=== PATIENT | female | born 1965 | race Caucasian/White ===

== ENCOUNTER 2020-07-18 17:59 | Emergency (ER) | payer OTHER, SELFPAY ==
[2020-07-18 18:21] VITALS: BP 148/83; PULSE 87; RESP 20; TEMP 37.7; O2SAT 100
--- NOTE | 2020-07-18 18:39 | ED.SKABFB ---
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 Patient states she has couple day history of left crabtree eruption that is pink, slightly raised. She is concerned she might have shingles, and had shaved her legs about half a week ago. No streaking, discharge, abscess/induration-but she had a fever to 101 yesterday. Symptoms are mild worse with palpation. Vital signs are unremarkable here with T 99.8, BP 148/83, and patient states she has had mildly elevated blood pressures in the past. Advised will be given antibiotic clindamycin, which should be stopped if diarrhea occurs. Related Data Allergies Allergy/AdvReac Type Severity Reaction Status Date / Time No Known Allergies Allergy Unknown Verified 06/06/03 13:20 none Allergy Unknown Uncoded 11/29/02 13:06 Review of Systems Review of Systems: Narrative: General/Constitutional: No weight loss, REPORTS fever Eyes: N0: Redness,discharge Ears/Nose/Throat: No: Epistaxis,ear discharge Respiratory: Denies: Hemoptysis Gastrointestinal: No Vomiting, Bleeding-rectal Skin: No Lumps, REPORTS eruption Neurologic: No Focal Weakness,Sz Hematologic: Denies: Petechiae/Purpura Psychiatric: No: Suicida ideationl All Other Systems: Reviewed and Negative [facility] Social History Social History Gender identity (if verbalized by the patient): Female Comments At time of signature, agree with nursing past medical, surgical, social and family history. There is no relevant family history pertinent to the presenting complaint Exam Narrative: Exam Narrative: General Appearance: Overweight Normocephalic, Conjunctiva clear Ear: External ear normal Nose: Normal nose, Nare clear Mouth/Throat: Normal appearing Neck Exam: Supple Respiratory: Airway patent, No respiratory distress Musculoskeletal: Moves all extremities, Non tender Skin: Warm, Dry small, isolated macular papular skin eruption of left crabtree, with areas of sawyer confluence/ cellulitis Neurological: A&O x3, Normal affect Course Vital Signs Vital signs: Vital Signs Temperature 99.8 F H 07/18/20 18:21 Pulse Rate 87 07/18/20 18:21 Respiratory Rate 20 07/18/20 18:21 Blood Pressure 148/83 H 02/10/21 18:21 Pulse Oximetry 100 07/18/20 18:21 Temperature 99.8 F H 07/18/20 18:21 Pulse Rate 87 07/18/20 18:21 Respiratory Rate 20 07/18/20 18:21 Blood Pressure 148/83 H 07/18/20 18:21 Pulse Oximetry 100 07/18/20 18:21 Discharge Plan Discharge Clinical Impression: Folliculitis, History of hypertension Patient Disposition: Home, Self-Care Condition: Stable Instructions: Antibiotic Form, Cellulitis (ED) Additional Instructions: Keep photo log of area, see PMD in follow-up Do daily blood pressure checks Prescriptions: New clindamycin HCl 300 mg capsule 300 mg PO TID Qty: 21 RF: 0 fluconazole 150 mg tablet 150 mg PO WEEKLY Qty: 2 RF: 1 mupirocin 2 % ointment 1 applic TOPICAL TID Qty: 30 RF: 0 hydrochlorothiazide 12.5 mg tablet 12.5 mg PO DAILY Qty: 60 RF: 2 Follow-up/Referrals: PHYSICIAN,ORGANIC SEARCH LEAD [Primary Care Provider] -
== END 2020-07-18 18:43 | disposition home or self-care (01) ==
PROVIDERS: Emergency Provider Emergency Medicine
DX: L73.9 Follicular disorder, unspecified (principal)
CPT/HCPCS: 99213; G0463

== ENCOUNTER 2021-10-17 01:16 | Day surgery (SDC) | payer OTHER, SELFPAY ==
--- NOTE | 2021-10-15 15:57 | SUR.PREOP ---
Report to the Outpatient Waiting Room, entrance under the green pavilion located off [facility], at time 6am on date 10/17 OR Time: 730 - You and your visitor will be asked a series of questions to screen for COVID 19 for your protection. - Only one visitor is allowed at this time. - The patient visitor is requested to leave or wait in car when not with patient. - A mask is required within the hospital. Patients may have clear liquids (water, carbonated beverages, clear teas, apple juice) until 3 hours prior to surgery with a maximum of 20 ounces. - No food from midnight until time of surgery. Take the following medications with a SIP of water the morning of surgery: N/A Medications to discontinue per physician N/A Please no make-up, nail citizen of [place], hairspray, perfume, deodorant, or body powder the day of surgery. No jewelry (including any body piercings) or valuables the day of surgery, leave them at home. Please take a shower or bath the night before, or the morning of, surgery with an antibacterial soap. Wear comfortable, loose fitting clothing. - Jewelry must be removed prior to entering the operating room. Rings and piercings that are not removed may be cut off. - The hospital will not accept responsibility for valuables. - Please leave all valuables, including medications, at home the day of surgery. If you are going home after surgery, a licensed tank wagon driver must drive you home. - NO public transportation without another adult. - We recommend that an adult stay with you for 24 hours following discharge. - We also recommend that you do not drive, make important decision, drink alcoholic beverages, or take any drugs that were not prescribed by your health care provider for at least 24 hours after your discharge time. Follow any additional instructions given to you from your surgeon. If you or anyone in your household have experienced Covid symptoms in the past week, please notify your surgeon or the nurse liaison at the phone number below for possible testing. Telephone instructions given to patient and asked if any additional questions and then verbalized understanding. Patient advised to call surgeon office or pre surgery nurse liaison [phone] if any additional questions.
[2021-10-15 16:08] VITALS: BMI 35.8
[2021-10-17] VITALS (12 sets, daily range): BP systolic 116–155; BP diastolic 80–99; PULSE 66–103; RESP 10–20; TEMP 36.2–36.6; O2SAT 94–100
[2021-10-17] MEDS: LACTATED RINGERS 1,000 ML 30 ML IV CONT ×3 (06:30→11:23)
[2021-10-17 06:35] LABS: Urine Cotinine NEGATIVE
--- NOTE | 2021-10-17 06:45 | P.OP_ITS ---
Procedure Note - Detailed Date of Procedure 10/17/21 Pre-op Diagnosis macromastia, localized adiposity lateral breast Post-op Diagnosis Same Procedure Performed Bilateral reduction mammaplasty with suction lipectomy lateral breast Surgeon Chavo Elaine MD Anesthesia General Findings Inverted T Superior medial pedicle Good color / cap refill of NAC at end of case Tissue removed: Right - 1123 grams Left - 980 grams Lipoaspirate: 500cc total volume Description of Procedure She is here today for bilateral breast reduction. Previously and again today the risks, benefits, alternatives were discussed in extensive detail. I wanted her to be very realistic about the risks involved as well as expectations. We discussed aftercare and what to monitor for. She understands we can never guarantee final breast size and there will always be asymmetry. I was very upfront and honest about the risks of sensation change and even nipple loss (). Made sure answered all of her questions to her satisfaction today and consent was obtained. She was marked in the preoperative holding area with their verification. The patient was taken to the operating room placed supine on the operating table. Anesthesia was provided by anesthesiology. She was prepped and draped in a standard sterile fashion. A surgical time-out was taken. Stab incisions were made and I tumessed with a tumescent solution. I marked out the nipple-areolar complex at 42 mm. I then de-epithelialized the pedicle. The pedicle was well left well more than 2 cm in thickness. I then removed the inferior portion of the breast as well as the central keel to get shape based on preoperative planning. At this point copiously irrigated with saline solution and verified a strict hemostasis. I reapproximated the pillars using a 2-0 PDS. I tailor tacked the breast into place with rajesh. She was placed in a sitting position. I verified the nipple-areolar complex position based on preoperative markings, intraoperative measurements, and observation which were in full agreement. This nipple-areolar complex was marked at 42 mm in size. Suction lipectomy of lateral breast / chest wall was completed using a 4mm basket cannula based on S.A.F.E. technique in multiple planes and passes based on preoperative planning, intraoperative observations, and rolling pinch test which were all in full agreement. This was bilateral. I then placed supine and de-epithelialized this. Nipple-areolar complex was inset with 3-0 Monocryl. I closed IMF deep with 1 strattafix. I closed the vertical incision with 3-0 Monocryl in the IMF with 3-0 stratafix. Then everything was closed using a running subcuticular 4-0 Monocryl followed by Steri-Strips. A dressing was placed followed by surgical bra. Patient was awoke and taken to PACU without difficulty. All instrument sponge c ounts were correct at the end of the case. Estimated Blood Loss 125 Drains No Packing No Pathology Yes (bilateral breast tissue) Complications No immediate complications Condition Stable Disposition PACU
--- NOTE | 2021-10-17 06:48 | P.PNAN_ITS ---
Anes - Initial Pre Proc Eval Procedure: Operation Date: 10/17/21 07:30 Proposed Procedures p Bilateral Breast Reduction with Lateral Breast Liposuction - Chavo Elaine MD Date/Time: 10/17/21 06:48 Surgeon: Chavo Elaine MD Pre Op Diagnosis: macromastia, localized adiposity lateral breast Patient Data Age: 56 Gender: F Height: 1.65 m Weight: 97.7 kg Allergies Allergy/AdvReac Type Severity Reaction Status Date / Time No Known Allergies Allergy Unknown Verified 10/15/21 15:34 Home Medications Medication Instructions Recorded Confirmed Type fluticasone propionate 50 1 spray INTRANASAL DAILY 03/05/21 10/17/21 History mcg/actuation nasal spray,suspension docusate sodium 100 mg capsule 100 mg PO DAILY #14 cap 09/19/21 10/15/21 Rx oxycodone-acetaminophen 5 mg-325 1 tablet PO Q6H PRN #30 tablet 09/23/21 10/15/21 Rx mg tablet ocrelizumab [Ocrevus] 600 mg IV [id number] 10/15/21 10/17/21 History terbinafine HCl 250 mg PO DAILY 10/15/21 10/17/21 History cetirizine [Zyrtec] 10 mg PO DAILY 10/17/21 10/17/21 History cholecalciferol (vitamin D3) 5,000 unit PO DAILY 10/17/21 10/17/21 History [Vitamin D3] multivit with min-folic acid 1 tablet PO DAILY 10/17/21 10/17/21 History [Adult One Daily Multivitamin] Laboratory Tests 10/17/21 06:05 Cotinine Negative Patient hx anesthesia problems: post op nausea/vomiting Family hx anesthesia problems: none Results Review: All pre-operative results and documents have been reviewed as part of the pre-operative evaluation. [facility] Past Medical History Medical History GERD (gastroesophageal reflux disease) Multiple sclerosis Surgical History Surgical History History of Social History Social History Smoking status: Never smoker Alcohol intake: current Alcohol use details: rarely Substance use type: does not use Living arrangements: with family Gender identity (if verbalized by the patient): Female Spiritual care concerns: No Anes - Eval Final PreProcedure Day of Procedure 10/17/21 06:48 Patient weight: obese Heart: regular rate and rhythm Lungs: clear to auscultation Airway: Mallampati scale class II Neurological: alert and oriented Last oral intake: >/= 8 hours ASA classification: III Emergent: no Anesthetic plan: proceed Anesthesia type and monitoring: general LMA and standard monitoring Results Review: All pre-operative results and documents have been reviewed as part of the pre-operative evaluation. Informed Consent: The patient's anesthetic plan and its attendant risks and benefits were discussed with the patient/family/POA. Questions were solicited and answers provided to the satisfaction of the patient/family/POA.
--- NOTE | 2021-10-17 07:24 | WPDHPUPDATE1 ---
History and Physical Update Update Date/Time: 10/17/21 07:24 History and Physical has been reviewed, including an updated exam of the patient. There are NO changes in the patient's condition. Risks, benefits, and alternatives have been discussed and questions answered. Patient agrees to proceed with procedure.
[2021-10-17] MEDS: SCOPOLAMINE 1.5 MG PATCH TRANSDERM (07:27)
[2021-10-17] MEDS: TRANEXAMIC ACID 1,000MG/ISO100 1,000 MG/100 ML BAG 200 MG IVPB (07:35)
[2021-10-17] MEDS: ceFAZolin 2 GM/D5W 50 ML 2 GM/50 ML BAG IVPB (07:36)
[2021-10-17] MEDS: LACTATED RINGERS IRRIG 1,000 ML, LIDOCAINE HCL 1% LOCAL INJ 50 ML, EPINEPHrine HCL INJ ... INFILTRATE (08:06)
[2021-10-17] MEDS: ONDANSETRON INJ 4 MG/2 ML VIAL IV PUSH (11:04)
--- NOTE | 2021-10-17 11:07 | SUR.PHASEI ---
1101: Simple mask removed.
[2021-10-17] MEDS: fentaNYL CITRATE INJ (*CRX) 100 MCG/2 ML VIAL 25 MCG IV PUSH ×2 (11:16→13:43)
[2021-10-17] MEDS: diphenhydrAMINE HCl INJ 50 MG/ML VIAL 25 MG IV PUSH (11:32)
[2021-10-17] MEDS: oxyCODONE HCL (*CRX) 5 MG TAB IR PO (12:55)
== END 2021-10-17 14:32 | disposition home or self-care (01) ==
PROVIDERS: PCP Family Medicine; Visit Provider Surgery Plastic and Reconstructive Surgery
PROC: 0HBV0ZZ Excision of Bilateral Breast, Open Approach (ICD-10-PCS; CPT 19318; principal; 2021-10-17 07:30)
DX: N62 Hypertrophy of breast (principal); E65 Localized adiposity; N60.32 Fibrosclerosis of left breast; N60.31 Fibrosclerosis of right breast; N60.42 Mammary duct ectasia of left breast; M25.519 Pain in unspecified shoulder; M54.2 Cervicalgia; M54.9 Dorsalgia, unspecified; G89.29 Other chronic pain; R21 Rash and other nonspecific skin eruption; M43.10 Spondylolisthesis, site unspecified; G35 Multiple sclerosis; K21.9 Gastro-esophageal reflux disease without esophagitis; E66.9 Obesity, unspecified; Z68.37 Body mass index [BMI] 37.0-37.9, adult
CPT/HCPCS: 19318; 80307; 88305; A9270; J0171; J0690; J1100; J1170; J1200; J2250; J2405; J2704; J3010; J7120

== ENCOUNTER 2022-08-29 01:29 | Day surgery (SDC) | payer OTHER, SELFPAY ==
[2022-08-21 11:26] VITALS: BMI 35.8
--- NOTE | 2022-08-29 09:04 | P.PNAN_ITS ---
Anes - Initial Pre Proc Eval Procedure: Operation Date: 08/29/22 11:00 Proposed Procedures p Esophagogastroduodenoscopy & Screening Colonoscopy - Trevon Sow MD Date/Time: 08/29/22 09:04 Surgeon: Trevon Pearson MD Pre Op Diagnosis: dysphagia, neoplasm screening Patient Data Age: 56 Gender: F Height: 1.65 m Weight: 97.7 kg Allergies Allergy/AdvReac Type Severity Reaction Status Date / Time No Known Allergies Allergy Unknown Verified 08/29/22 10:05 Home Medications Medication Instructions Recorded Confirmed Type fluticasone propionate 50 2 spray intranasal DAILY 03/05/21 08/29/22 History mcg/actuation nasal spray,suspension ocrelizumab 30 mg/mL intravenous 600 mg IV [id number] 10/15/21 08/29/22 History solution (Ocrevus) terbinafine HCl 250 mg tablet 250 mg PO DAILY 10/15/21 08/29/22 History cetirizine 10 mg tablet (Zyrtec) 10 mg PO DAILY 10/17/21 08/29/22 History cholecalciferol (vitamin D3) 125 5,000 unit PO DAILY 10/17/21 08/29/22 History mcg (5,000 unit) tablet (Vitamin D3) Glucosamine Chond. Synerg 2 cap PO DAILY 08/21/22 08/29/22 History Mycorev Neuro 2 cap PO DAILY 08/21/22 08/29/22 History Neurotrophin-Pmg 2 tab-cap PO DAILY 08/21/22 08/29/22 History Super-Eff 2 cap PO DAILY 08/21/22 08/29/22 History Symplex-F 3 cap PO DAILY 08/21/22 08/29/22 History omega-3 fatty acids 2 cap PO DAILY 08/21/22 08/29/22 History vitamin B complex 2 ea PO DAILY 08/21/22 08/29/22 History Patient hx anesthesia problems: none Family hx anesthesia problems: none Results Review: All pre-operative results and documents have been reviewed as part of the pre- operative evaluation. [facility] Past Medical History Medical History (Updated 08/29/22 @ 09:05 by Larry Rivera DO) GERD (gastroesophageal reflux disease) Multiple sclerosis relapse remitting Ulcer Surgical History Surgical History (Updated 08/29/22 @ 09:05 by Larry Rivera, DO) History of History of tubal ligation Social History Social History Smoking status: Never smoker Alcohol intake: current Alcohol use details: rarely Substance use: never Substance use type: does not use Living arrangements: with family Gender identity (if verbalized by the patient): Female Spiritual care concerns: No Anes - Eval Final PreProcedure Day of Procedure 08/29/22 09:04 Patient weight: obese Heart: regular rate and rhythm Lungs: clear to auscultation Airway: Mallampati scale class II Neurological: alert and oriented Last oral intake: >/= 8 hours ASA classification: III Emergent: no Anesthetic plan: proceed Anesthesia type and monitoring: general GIVS and standard monitoring Results Review: All pre-operative results and documents have been reviewed as part of the pre- operative evaluation. Informed Consent: The patient's anesthetic plan and its attendant risks and benefits were discussed with the patient/family/POA. Questions were solicited and answers provided to the satisfaction of the patient/family/POA.
[2022-08-29 10:08] VITALS: BP 134/89; PULSE 75; RESP 16; TEMP 36.2; O2SAT 100; BMI 38.3
[2022-08-29] MEDS: LACTATED RINGERS 1,000 ML 150 ML IV CONT (10:11)
--- NOTE | 2022-08-29 10:33 | PM.HPGS ---
History of Present Illness History of Present Illness Consent: Risks, benefits, and alternatives have been discussed and questions answered. Patient agrees to proceed with procedure. Chief complaint: dysphagia, neoplasm screening Narrative: Marly Barksdale is a 56 year old female with gerd using omeprazole only as needed, recently again with dysphagia- had dilatation in 2006, last colonoscopy more than 15 years ago for IBS Review of Systems Constitutional: Constitutional: Denies headache(s) and Denies weakness Eyes: Eyes: Denies blurry vision ENT: Reports Normal hearing present, Denies headache(s) and Denies neck pain Cardiovascular: Cardiovascular: Denies chest pain and Denies dyspnea Respiratory: Respiratory: Denies dyspnea Gastrointestinal: Gastrointestinal: Reports no additional gastrointestinal complaints Genitourinary: Genitourinary: Denies dysuria Musculoskeletal: Musculoskeletal: Denies neck pain Integumentary/Breasts: Skin/Breast: Denies dry skin Neurologic: Reports Normal hearing present, Denies headache(s) and Denies weakness Psychiatric: Psychiatric: Denies anxiety Endocrine: Endocrine: Denies change in body appearance Hematologic/Lymphatic: Hematologic/Lymphatic: Denies easy bleeding Allergic/Immunologic: Allergic/Immunologic: Denies urticaria PMFSH Past Medical History Medical History (Updated 08/29/22 @ 10:34 by Trevon Pearson MD) Colon cancer screening Dysphagia GERD (gastroesophageal reflux disease) Multiple sclerosis relapse remitting Ulcer Surgical History Surgical History (Updated 08/29/22 @ 09:05 by Larry Rivera DO) History of History of tubal ligation Social History Social History Smoking status: Never smoker Alcohol intake: current Alcohol use details: rarely Substance use: never Substance use type: does not use Living arrangements: with family Gender identity (if verbalized by the patient): Female Spiritual care concerns: No Meds Home Medications and Allergies Home Medications Medication Instructions Recorded Confirmed Type fluticasone propionate 50 2 spray intranasal DAILY 03/05/21 08/29/22 History mcg/actuation nasal spray,suspension ocrelizumab 30 mg/mL intravenous 600 mg IV [id number] 10/15/21 08/29/22 History solution (Ocrevus) terbinafine HCl 250 mg tablet 250 mg PO DAILY 10/15/21 08/29/22 History cetirizine 10 mg tablet (Zyrtec) 10 mg PO DAILY 10/17/21 08/29/22 History cholecalciferol (vitamin D3) 125 5,000 unit PO DAILY 10/17/21 08/29/22 History mcg (5,000 unit) tablet (Vitamin D3) Glucosamine Chond. Synerg 2 cap PO DAILY 08/21/22 08/29/22 History Mycorev Neuro 2 cap PO DAILY 08/21/22 08/29/22 History Neurotrophin-Pmg 2 tab-cap PO DAILY 08/21/22 08/29/22 History Super-Eff 2 cap PO DAILY 08/21/22 08/29/22 History Symplex-F 3 cap PO DAILY 08/21/22 08/29/22 History omega-3 fatty acids 2 cap PO DAILY 08/21/22 08/29/22 History vitamin B complex 2 ea PO DAILY 08/21/22 08/29/22 History Allergies Allergy/AdvReac Type Severity Reaction Status Date / Time No Known Allergies Allergy Unknown Verified 08/29/22 10:05 Vital Signs Vital Signs - 24 hr 08/29/22 10:08 Temperature 97.1 F L Pulse Rate 75 Respiratory Rate 16 Blood Pressure 134/89 Pulse Oximetry 100 Oxygen Delivery Room Air Exam Const: General: comfortable and no acute distress HENMT: Face/Nose/Sinus: Normal nares present Eyes: General: appearance normal, both eyes and all related structures Neck: Neck: no JVD Resp: Auscultation: clear to auscultation bilaterally Cardio: Rate: regular rate Rhythm: regular rhythm GI: Inspection: non-distended GI Palp: Yes Soft to palpation Skin: General skin exam: normal color Neuro: General: gait normal Speech: normal speech Extrem: General: normal to inspection Psych: Mental Status: mental statu
--- NOTE | 2022-08-29 11:03 | SUR.OPER ---
EGD START: 1041; END: 1047. COLONOSCOPY START: 1053; END: 1101.
[2022-08-29 11:05] VITALS: BP 119/66; PULSE 86; RESP 18; O2SAT 98
[2022-08-29 11:15] VITALS: BP 134/82; PULSE 71; RESP 19; O2SAT 100
[2022-08-29 11:23] VITALS: BP 131/96; PULSE 74; RESP 21; O2SAT 100
== END 2022-08-29 11:34 | disposition home or self-care (01) ==
PROVIDERS: PCP Family Medicine; Visit Provider Internal Medicine Gastroenterology
PROC: 0DJ08ZZ Inspection of Upper Intestinal Tract, Via Natural or Artificial Opening Endoscopic (ICD-10-PCS; CPT 43235; principal; 2022-08-29 11:00)
DX: Z12.11 Encounter for screening for malignant neoplasm of colon (principal); K64.8 Other hemorrhoids; K64.4 Residual hemorrhoidal skin tags; K22.2 Esophageal obstruction; K21.00 Gastro-esophageal reflux disease with esophagitis, without bleeding; K44.9 Diaphragmatic hernia without obstruction or gangrene; K29.50 Unspecified chronic gastritis without bleeding; G35 Multiple sclerosis; Z79.620 Long term (current) use of immunosuppressive biologic; E66.9 Obesity, unspecified; Z68.38 Body mass index [BMI] 38.0-38.9, adult
CPT/HCPCS: 45378; 43239; 43249; 88305; C1726; J2704; J7120